=== PATIENT | male | born 1940 | race Caucasian/White ===

== ENCOUNTER → 2017-07-05 | Day surgery (SDC) | payer MEDICARE, BC ==
[~2017-07-05] MED LIST: BUPIVACAINE/EPINEPHRINE 0.25% PF 30 ML VIAL ONE; BUPIVACAINE/EPINEPHRINE 0.5% PF 30 ML VIAL ONE; LACTATED RINGER'S 1000 ML INJ 1,000 ML ONE; LIDOCAINE 1.5%/EPINEPHrine 1:200,000 PF SOLN 30 ML AMP ONE; MIDAZOLAM HCL 2 MG/2 ML VIAL ONE; NEOMYCIN/POLYMYXIN/BACITRACIN OINT 15 GM TUBE ONE; ONDANSETRON HCL 4 MG/2 ML VIAL IV PUSH ONE; PROPOFOL 200 MG/20 ML AMP IV ONE; ceFAZolin 2 GM PREMIX 50 ML ONE
--- NOTE | 2017-07-05 21:02 | TN ---
cc: KENY LAINEZ MD DATE OF SURGERY 07/05/17 PREOPERATIVE DIAGNOSIS Malignant melanoma right gnosticist area. POSTOPERATIVE DIAGNOSIS Malignant melanoma right gnosticist area. PROCEDURE PERFORMED 1. Wide local excision of right temporal area. 2. Rhomboid tissue flap with tissue rearrangement, 7 cm x [address] Angel Lainez MANAGEMENT MANAGER See OR sheet ANESTHESIA GETA. IV FLUIDS See anesthesia sheet ESTIMATED BLOOD LOSS 5 mL. DRAINS None COMPLICATIONS None. WOUND CLASSIFICATION Clean FINDINGS Good hemostasis. Good approximation of the tissue defect without undue tension. INDICATION The patient is a 76-year-old male several medical issues developed skin pigmented lesion on right gnosticist area. The patient sent to office for further evaluation and biopsy proven of malignant melanoma 0.3 mm. Therefore, decision was made for excision to negative margins and wide local excision. PROCEDURE IN DETAIL The patient was taken to the operating suite, placed in a supine position. He was prepped and draped in usual sterile fashion to the right temporal area. Brief time-out done stating correct patient, procedure, surgical site and all were in agreement with this. Attention directed to the right gnosticist area. The melanoma was adequately mapped out radially. Attempted to achieve approximately 1 cm margins radially. Initial consideration for a primary closure was considered, however, given the need to obtain a negative margin with wide local excision and not a tissue decision was made for consideration for rotational flap for tissue coverage and better approximation of the tissue defect. A rhomboid area was cut out again to require appropriate margins. This was done with a scalpel and measured to appropriate length. The rhomboid dimensions were made to the superior and inferior edges corners 120 degree and 60 degree at the anterior-posterior corner edges. Further dissection was done with a Nuckolls tip electro Bovie cautery to include subcutaneous tissues. The specimen was removed. However, prior to removal 2-0 silk suture was placed in a short stitch superior and long stitch was placed posterior. The specimen was then sent to pathology. Hemostasis was obtained. At this point, again commencing forward with tissue rearrangement, the inferior edge was extended with a 15 blade scalpel 1/3 of the distance in order to appropriate the flap. Next, the incision was done more inferiorly in order to again further define the tissue flap. Next, small horizontal incision was made done all with a 15 blade. Again electro Bovie cautery used to further dissect and mobilize the tissue flap. Once the tissue flap was appropriately mobilized, the skin beneath was also undermined and able to facilitate flap rotation and allow for less traction. The flap was rotated up and sat snugly within the rhomboid tissue defect. Prior to suture, irrigation was done and again hemostasis obtained with electro Bovie cautery. The corner stitches were done to approximate the flap using a 4-0 Monocryl. Next, a running 5-0 catgut was used to approximate the subcutaneous layer. Following this, Dermabond was used in order to completely seal the wound. The patient tolerated the procedure well. There were no intraoperative complications. All lap and instrument counts were correct at the end of the procedure. The patient was extubated and taken to PACU. MD IRINA Troy/ /6:05 PM /8:36 PM
== END | disposition home or self-care (01) ==
LOC: ESDC 07:44
PROVIDERS: ATTEND Surgery
DX: C43.39 Malignant melanoma of other parts of face (principal)
CPT/HCPCS: 00300; 14041; 88305; J0690; J2250; J2405; J3010; J7120